=== PATIENT | female | born 1950 ===

== ENCOUNTER 2023-06-09 08:50 | Outpatient (CLI) | payer OTHER | END 2023-06-09 08:53 | disposition home or self-care (01) | LOC: SONOGRAMA 08:50 | PROVIDERS: ATTEND Pathology Anatomic Pathology & Clinical Pathology | DX: C77.0 Secondary and unspecified malignant neoplasm of lymph nodes of head, face and neck (principal); L04.0 Acute lymphadenitis of face, head and neck ==